=== PATIENT | female | born 1970 | race Caucasian/White ===

== ENCOUNTER 2017-02-01 14:37 | Emergency (ER) | payer OTHER ==
[2017-02-01 15:41] VITALS: BMI 18.8
[2017-02-01 15:44] VITALS: BP 104/65; PULSE 70; RESP 14; TEMP 97.2; O2SAT 100
--- NOTE | 2017-02-01 16:07 | C.PDOC ---
History Of Present Illness 46 y/o female presents to ED with complaints of left wrist pain for 2 days. Patient states pain developed while at work and could have possibly struck it against something or developed because of the heavy lifting she does at work. Patient took Advil for pain and put ice pack on wrist with no improvement. Patient denies numbness, weakness or any other complaints at this time. Time Seen by Provider: 02/01/17 15:34 Chief Complaint (Nursing): Finger,Hand,&Wrist History Per: Patient History/Exam Limitations: no limitations Onset/Duration Of Symptoms: Days Current Symptoms Are (Timing): Still Present Past Medical History Reviewed: Historical Data, Nursing Documentation, Vital Signs Vital Signs: Last Vital Signs Temp 97.2 F L 02/01/17 15:40 Pulse 70 02/01/17 15:40 Resp 14 02/01/17 15:40 BP 104/65 02/01/17 15:40 Pulse Ox 100 02/01/17 16:10 Family History: States: Unknown Family Hx - Social History Hx Alcohol Use: No Hx Substance Use: No Review Of Systems Except As Marked, All Systems Reviewed And Found Negative. Constitutional: Negative for: Weakness Neurological: Negative for: Numbness Physical Exam - Physical Exam Additional Physical Exam Comments: Constitutional: No acute distress. Head: Normocephalic. Atraumatic. Eyes: PERRL. ENT: Moist mucous membranes. Neck: Supple. Cardiovascular: Regular rate. Radial pulse 2+ bilaterally. Chest: No tenderness. Respiratory: Clear to auscultation bilaterally. GI: Soft. Nontender. Nondistended. Back: No CVA tenderness. Musculoskeletal: Swelling to radial aspect with snuff box tenderness. Full ROM Skin: No rash. Neurologic: Alert, no focal deficit. Motor 5/5x 4 ED Course And Treatment O2 Sat by Pulse Oximetry: 100 (RA) Pulse Ox Interpretation: Normal Medical Decision Making Medical Decision Making: Plan: X-ray and Splint Patient declined pain medications XR no obvious fracture. Thumb spica splint placed. F/u Ortho. Disposition - Disposition Referrals: Varinder Lau MD [Staff Provider] - Disposition: HOME/ ROUTINE Disposition Time: 16:26 Condition: STABLE Instructions: Wrist Injury (ED) Forms: Work Excuse - Clinical Impression Clinical Impression: Wrist injury - Scribe Statement The provider has reviewed the documentation as recorded by the Scribe Shanthi Mcclendonta All medical record entries made by the Kenzie were at my direction and personally dictated by me. I have reviewed the chart and agree that the record accurately reflects my personal performance of the history, physical exam, medical decision making, and the department course for this patient. I have also personally directed, reviewed, and agree with the discharge instructions and disposition.
--- NOTE | 2017-02-01 17:14 | RAD ---
PROCEDURE: Left Wrist Radiographs. HISTORY: wrist pain, struck at work COMPARISON: None. FINDINGS: BONES: Normal. No fracture. JOINTS: Normal. No dislocation. SOFT TISSUES: Normal. OTHER FINDINGS: None. IMPRESSION: Normal left wrist radiographs.
== END 2017-02-01 16:38 | disposition home or self-care (01) ==
LOC: C.ER 14:37
DX: S69.92XA Unspecified injury of left wrist, hand and finger(s), initial encounter (principal); X58.XXXA Exposure to other specified factors, initial encounter; Y93.89 Activity, other specified; Y92.89 Other specified places as the place of occurrence of the external cause

== ENCOUNTER 2018-03-20 11:39 | Emergency (ER) | payer OTHER ==
[2018-03-20 11:39] VITALS: BMI 18.8
[2018-03-20 11:53] VITALS: TEMP 97.9; O2SAT 98
--- NOTE | 2018-03-20 12:00 | C.PDOC ---
History Of Present Illness 48 y/o female presents to the ED complaining of left lower back pain radiating down the left leg for 1 week. Patient states her work involves standing for long periods of time and sometimes heavy lifting. Pain is described as constant , rated an 8/10, and worsens with ambulation. Time Seen by Provider: 03/20/18 11:57 Chief Complaint (Nursing): Back Pain History Per: Patient History/Exam Limitations: no limitations Onset/Duration Of Symptoms: Days Current Symptoms Are (Timing): Still Present Past Medical History Reviewed: Historical Data, Nursing Documentation, Vital Signs Vital Signs: Last Vital Signs Temp 97.9 F 03/20/18 11:49 Pulse 72 03/20/18 11:49 Resp 18 03/20/18 11:49 BP 107/73 03/20/18 11:49 Pulse Ox 98 03/20/18 12:53 - Medical History PMH: Back Problems Family History: States: Unknown Family Hx - Social History Hx Alcohol Use: No Hx Substance Use: No - Immunization History Hx Tetanus Toxoid Vaccination: Yes Hx Influenza Vaccination: Yes Hx Pneumococcal Vaccination: Yes Review Of Systems Except As Marked, All Systems Reviewed And Found Negative. Constitutional: Negative for: Fever Genitourinary: Negative for: Dysuria, Frequency, Incontinence Musculoskeletal: Positive for: Back Pain, Leg Pain Neurological: Negative for: Weakness, Numbness, Incoordination Physical Exam - Physical Exam Appears: Non-toxic, No Acute Distress Skin: Normal Color, Warm, Dry Head: Atraumatic, Normacephalic Eye(s): bilateral: Normal Inspection Oral Mucosa: Moist Neck: Normal ROM, Supple Chest: Symmetrical Gastrointestinal/Abdominal: Soft, No Tenderness Back: No CVA Tenderness, No Vertebral Tenderness, No Paraspinal Tenderness Extremity: Bilateral: Atraumatic, Normal Color And Temperature, Normal ROM Pulses: Left Dorsalis Pedis: Normal, Right Dorsalis Pedis: Normal Neurological/Psych: Oriented x3, Normal Speech, Normal Motor, Normal Sensation, Other (No focal deficits) Gait: Steady ED Course And Treatment O2 Sat by Pulse Oximetry: 98 (RA) Pulse Ox Interpretation: Normal Medical Decision Making Medical Decision Making: Impression: Low back pain radiating down the left leg Plan: * Tylenol 975 mg PO * Motrin 600 mg PO * Flexeril 10 mg PO * Lidoderm patch x1 * Reassessment and disposition Disposition Counseled Patient/Family Regarding: Diagnosis, Need For Followup, Rx Given - Disposition Referrals: [facility] [Outside] Disposition: HOME/ ROUTINE Disposition Time: 14:06 Condition: STABLE Prescriptions: Cyclobenzaprine [Cyclobenzaprine HCl] 10 mg PO TID #12 tab Ibuprofen [Motrin] 600 mg PO TID #15 tab Instructions: Sciatica Forms: [facility] (Swazi), General Discharge Instructions, Work Excuse - POA Present On Arrival: None - Clinical Impression Clinical Impression: Low back pain, Sciatica - Scribe Statement The provider has reviewed the documentation as recorded by the Scribe (Trinidad Santacruz) Provider Attestation: All medical record entries made by the Scribe were at my direction and personally dictated by me. I have reviewed the chart and agree that the record accurately reflects my personal performance of the history, physical exam, medical decision making, and the department course for this patient. I have also personally directed, reviewed, and agree with the discharge instructions and disposition.
[2018-03-20] MEDS: Lidocaine 5% Patch TD STA (12:13)
[2018-03-20] MEDS ORDERED: Lidocaine 5% Patch TD ONE (12:13)
[2018-03-20 14:16] VITALS: BP 111/68; PULSE 84; RESP 16
== END 2018-03-20 14:16 | disposition home or self-care (01) ==
LOC: C.ER 11:39
DX: M54.40 Lumbago with sciatica, unspecified side (principal)